=== PATIENT | female | born 1960 | race Caucasian/White ===

== ENCOUNTER 2017-01-20 03:17 | Emergency (ER) | payer OTHER ==
[2017-01-20] MEDS ORDERED: cefTRIAXone\\ROCEPHIN 2 GM VIAL ONE (03:26)
== END 2017-01-20 03:53 | disposition home or self-care (01) ==
LOC: NAV ERS 03:17
DX: L03.116 Cellulitis of left lower limb (principal); L02.416 Cutaneous abscess of left lower limb; I10 Essential (primary) hypertension; M10.9 Gout, unspecified; F31.9 Bipolar disorder, unspecified; F17.210 Nicotine dependence, cigarettes, uncomplicated; Z79.899 Other long term (current) drug therapy
CPT/HCPCS: 10060; 96372; J0696

== ENCOUNTER 2020-07-01 06:35 | Outpatient (CLI) | payer OTHER ==
--- NOTE | 2020-07-01 07:49 | RAD ---
EXAM: XR Hip Rt 2-3 View PROVIDED CLINICAL HISTORY: Pain status post injury COMPARISON: None FINDINGS: Nondisplaced fracture involving the right pubic body is demonstrated. No additional fracture is evide nt. Right hip joint space appears maintained. Degenerative changes are seen involving the right sacroiliac joint. IMPRESSION: Nondisplaced right pubic body fracture.
== END 2020-07-01 06:36 | disposition home or self-care (01) ==
LOC: NAV RAD 06:35
PROVIDERS: ATTEND Family Medicine
DX: M25.551 Pain in right hip (principal); S32.501A Unspecified fracture of right pubis, initial encounter for closed fracture

== ENCOUNTER 2020-09-13 06:14 | Observation (INO) | payer OTHER ==
[2020-09-13] MEDS ORDERED: Ketorolac Tromethamine 60 MG/2 ML VIAL ONE (06:37)
[2020-09-13] MEDS ORDERED: Morphine 2 MG/ML SYRINGE ONE (08:14)
--- NOTE | 2020-09-13 08:31 | CT ---
PRELIMINARY REPORT/[facility]/EMERGENCY AFTER HOURS PROCEDURE: EXAM: CT Pelvis Without Intravenous Contrast. CLINICAL HISTORY: Patient is a 60-year-old female with a history of right hip pain since a near fall April 2020. Severe pain with walking and movement since. 2 months later patient had a x-ray of her lower back which demonstrated a right pubic body fracture of her pelvis. Patient has been referre d to orthopedics but not seen them in eventually was told she would probably need to be referred to pain management. Patient is not had any any further x-ray CTs or MRIs. 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 Left hip was replaced in 2018 TECHNIQUE: Axial computed tomography images of the pelvis without intravenous contrast. CONTRAST: None. COMPARISON: None FINDINGS: Left hip arthroplasty hardware appears intact. A mildly comminuted and displaced right pubi c fracture extends into the pubic symphysis. Adjacent to the right pubic fracture on coronal image 72 there is a partially peripherally calcified 3.6 x 2.9 x 4.3 cm oval masslike lesion. Intact right hip joint. Mild osteoarthrosis. Right femoral head avascular necrosis. Bilateral sacral insufficiency fractures. IMPRESSION: Right pubic fracture with mild comminution and displacement extends into the pubic symphy sis. A partially calcified oval masslike lesion adjacent to the right pubic fracture most likely represents an old hematoma measuring up to 4.3 cm. Bilateral sacral insufficiency fractures. Right fe moral head avascular necrosis. Intact left hip arthroplasty hardware. ELECTRONICALLY SIGNED BY: Mynor Rivera MD Sep 13, 2020 7:27:20 AM [employer] FINAL REPORT EMERGENT AFTER HOURS NONCONTRAST CT PELVIS: HISTORY: Right hip pain since fall in April 2020. Severe pain with walking. COMPARISON: None IMPRESSION: 1. Mildly comminuted right pubic bone fracture with adjacent peripherally calcified oval masslike str ucture in the adductor musculature likely related to partially calcified hematoma measuring 4.3 cm. 2. Bilateral sacral insufficiency fractures more prominent on the left. 3. Osteonecrosis involving the superior aspect right femoral head without collapse. 4. Left total hip prosthesis. 5. Degenerative changes visualized lower lumbar spine. 6. Colonic diverticulosis. 7. Findings are in agreement with preliminary report by [facility]. Transcribed Date/Time: 09/13/2020 8:49 AM
[2020-09-13 09:49] VITALS: BMI 32.4
[2020-09-13] MEDS: HYDROcodone/Acetaminophen 10/325 mg Tablet PO PRN ×2 (10:58→16:25)
[2020-09-13] MEDS ORDERED: Sodium Chloride 0.9% 10 ML ONE (14:08)
[2020-09-13] MEDS: Morphine 4 MG/ML VIAL SLOW IVP PRN (14:28)
[2020-09-13] MEDS ORDERED: hydrOXYzine Pamoate 25 mg Capsule PO SCH ×2 (15:00→17:30)
[2020-09-13] MEDS: hydrOXYzine Pamoate 25 mg Capsule PO SCH (20:27)
[2020-09-13] MEDS: Citalopram 20 MG TAB PO SCH (20:28)
[2020-09-13] MEDS: Lisinopril 20 MG TAB PO SCH (20:28)
[2020-09-13] MEDS: Ziprasidone 20 MG CAP PO SCH (20:28)
[2020-09-13] MEDS: Doxepin HCl 25 MG CAP PO SCH (20:29)
[2020-09-14] MEDS: HYDROcodone/Acetaminophen 10/325 mg Tablet PO PRN ×2 (05:26→09:15)
[2020-09-14] MEDS ORDERED: HYDROcodone/Acetaminophen 10/325 mg Tablet ONE ×3 (09:09→21:10)
--- OUTSIDE RECORDS SUMMARY | 2020-09-14 10:31 | XMS | Patient Health Record ---
:1960 Author Organization [facility] Address [address] [place] [address] Care Team Providers Name Role Phone Chase Unavailable [phone] Chao Unavailable [phone] Enoch Unavailable [phone] Daftarian Unavailable [phone] zzRouk Unavailable [phone] Delezene Unavailable [phone] PROBLEMS Type Condition ICD9-CM [id number] Onset Condition SNOMED Code Notes Code Code Dates Status Problem Essential I10 Active 95434555 Controlled hypertension with lisinopril and amlodipine Problem Bipolar disorder, F31.76 Active 06158157 Diagn osed in full greater than remission, most 20 years ago recent episode by psychi atry. depressed Reports initial hospitalizatio n at time of diagnosis. Not suicidal. Mood has stabilized. Problem Presence of Z96.649 Active 104533200 Status pos t artificial hip, left hip unspecified replacement laterality secondary to avascular necrosis. Secondary to alcohol abuse. No desire to quit. Problem Chronic gout M1A.9XX0 Active 840353319 Off without tophus, allopuri nol unspecified for greater cause, than 6 months unspecified site per pat ient. No exacerbation in greater than 1 year Problem Chronic renal N18.3 Active 388904031 Stable. impairment, stage 3 (moderate) Problem Closed fracture S32.501A Active 727659680 Follo wed by of right pubis, orthoped ics. unspecified Recent portion of pubis, increa sed back initial encounter pain w ithout red flags. Request imaging of the lumbar spine again. Problem Avascular M87.00 Active 451024244 reactive lizzette ma necrosis in left hip Problem Avascular M87.051 Active 284163512 necrosis of hip, right Problem Alcohol abuse F10.10 Active 41539253 No desire to quit. Daily use. Problem Gastroesophageal K21.9 Active 321811491 Chron ic reflux disease, alcohol use. esophagitis No diet presence not modificatio n. specified Ranitidine effective Problem Hip pain M25.559 Active 55751363 Problem Degenerative disc M51.36 Active 23215980 disease, lumbar Problem History of total Z96.649 Active [id number] hip arthroplasty ALLERGIES No Known Allergies ENCOUNTERS from 1960 to 2020-09-14 Encounter Location Date Provider Diagnosis [address], [place] [facility] [facility] [address] IMMUNIZATIONS Vaccine Route Administration Date Status Rocephin (Ceftriaxone) 250 mg IM Intramuscular January 22, 2017 A dministered Flu Quadrivalent PF 0.5 ml IM Unknown May 26, 2020 Ad ministered Flu Quadrivalent PF 0.5 ml IM Unknown Jun 10, 2019 Ad ministered Tdap (Adacel) IM Intramuscular Sep 01, 2015 Administered SOCIAL HISTORY Tobacco Use: Social History Observation Description Date Details (start date - stop date) Former Smoker Sex Assigned At : Social History Observation Description Sex Assigned At Unknown Smoking Question Answer Notes Are you a: former smoker REASON FOR REFERRAL from 1960 to 2020-09-14 Reason CCM Referring Provider First Name [place] Referring Provider Last Name Chase Referring Provider Specialty Family Practice Referred Provider [facility] stem, Medical Records Referral Priority Routine VITAL SIGNS from 1960 to 2020-09-14 Weight 230 lbs Aug, Height 71 in Aug, BMI 32.07 kg/m2 Aug, Heart Rate 92 /min Jul, Temperature 98.7 degrees Fahrenheit Jul, Oximetry 98 % Jul, Respiratory Rate 18 /min Feb, Blood pressure systolic 123 mm Hg May, Blood pressure diastolic 88 mm Hg May, MEDICATIONS Medication SIG (Take, Route, Notes Start Date End Date Status Frequency, Duration) Ziprasidone HCl 60 MG 1 capsule Orally Twice a Active day for 90 days Amlodipine Besylate 5 MG 1 tablet Orally Once a Active day for 90 Meloxicam 15 MG 1 tablet Orally Once a Active day Doxepin HCl 75 MG 1 capsule at bedtime Active Orally Once a day for 90 days Lisinopril 40 mg 1 tablet Orally Once a Active day for 90 Celexa 40 mg 1 tablet Orally Once a Active day for 90 Tramadol HCl 50 MG 1 tablet as needed May, Active Orally every 6 hrs for 7 days HydrOXYzine Pamoate 25 MG TAKE 1 CAPSULE BY MOUTH Active NEEDED EVERY 8 HRS FOR ANXIETY Orally every 8 hrs for 25 PROCEDURES No Information RESULTS No Results REASON FOR VISIT hip pain/ref dr hayward-barndy precert req, PAIN, *Follow Up Left Hip, Meds verified by reviewing meds in EHR; pt did not bring bottles or list, *AP Pelvis, XRAY APPT, sxs, [facility] PUI, fingers tingling and numb, Triplicate Refill Request, Triplicate, CONCERNS 2nd attempt 07/15, 1st attempt 07/14, follow up left hip/ RT hip, Pain Medication, pain relief, 1st attempt 06/17, Wellness exam, RX, rx , RX REFILL, left hip/nx/n mri/y surgery 2017, 1st attemp 06/03/20, HURT LT SIDE HIP, Surgery Clearance, 2 WK FU, bp; , concerns 2nd attempt 01/06, bp high , RX , RX , RX , RX, WELLNESS , rx, RX, rx, rx, rx, DENAE HEEL HURTING , RX , RX, RX, DUPLICATE, DUPLICATE, RX, REFERRAL , lm to call back 08/14, Refill, hip hurts and lt shoulder , ERROR, 6M FU, clarification, RE: RX REFILL/ HydrOXYzine Pamoate 25 MG Capsule, REFILL , REFILL, 3 MONTH F/U, RX REFILL , RX REFILL, [employer] Wellness Exam, [employer] Wellness Exam, REFILL, RX REFILL , F/U , RX REFILL, future lab, RX REFILL , 6 WK F/U for tobacco abuse, future lab, RX REFILL , F/U chronic medical conditions, f/u , Follow up Left Hip, 3 month f/u , refill, post op left hip;dos 04/29/18, 3 month f/u, Physical Therapy Request , PT order, Left THR, Follow up Left Hip, RX , 2 mo f/u and TSH lab, 2 mo f/u and TSH lab, Mri Results Left Hip, Request Tylenol #3, LEFT HIP/YX [facility] , RX REFILL, IN PAIN , ortho consult, 3 month f\\u, RX REFILL , REFILL, omepra zole, REFILL, Update Demographics - Personal Info, QUESTION ON MEDS 1st attempt, REFILL, 2 wk f\\u, 2 week follow up HTN, alcohol use, 2 WK F/U, 2 WK F/U, f/u gout, RX, rx refill, 1st attempt, ER F/U , concerns, BP Concerns , BP concerns , 2 week f/u, f/u gout, concerns, ankle pain , mammo order, ESTABLISH; RX REFILL, Medications verified by reviewing bottles brought in by patient today, Phys, OSHA, Rest Fit, Titers MEDICAL (GENERAL) HISTORY Type Description Date Medical History Bipolar disorder. Medical History Gout Medical History Elevated liver ernzymes. Medical History Alcohol use. Medical History HTN Medical History Diverticulosis Medical History AVN left hip Medical History CRI. III Surgical History Colonoscopy: Around age 47. Normal per p atient. 06/01/16 Dr Hess. Polyp and diverticulos is. 5 year follow up. Surgical History Right shoulder X 7. Rotator cuff. First rib. Scope. Surgical History T&A Surgical History Partial hysterectomy followed by a compl ete hysterectomy. Surgical History Cholecystectomy. Surgical History Mammogram: Age 47 normal per patient. Benign. Initiated 04/07/18 not done. 519 benign. Requests every two years Surgical History Tdap: 08/2015 Surgical History Left THR 04-29-18 Surgical History Shingrix: Advised on 01/02/19 Surgical History Hepatitis C screen: 2015. Negative Surgical History Left heel surgery Surgical History Flu vaccine: Fall 2019 per patient Hospitalization History Surgery Goals Section No Information Health Concerns No Information MEDICAL EQUIPMENT No Information MENTAL STATUS No Information FUNCTIONAL STATUS No Information ASSESSMENTS Encounter Date Diagnosis Assessment Notes Treatment Notes Treatm ent Clinical Notes Aug, Hip pain (ICD-10 - Discussed care. M25.559) The patient is healing her pubic symphysis fracture. I recommend continued conservative care. I discussed that her right avascular necrosis is stable. If it became symptomatic we discussed replacement. The patient may follow-up with PCP for continued pain management. I will see her back as needed. Aug, Degenerative disc disease, lumbar (ICD-10 - M51.36) Aug, History of total hip arthroplasty (ICD-10 - Z96.649) Aug, Closed fracture of right pubis, unspecified portion of pubis, initial encounter (ICD-10 - S32.501A) Aug, Avascular necrosis of hip, right (ICD-10 - M87.051) Jul, COVID-19 (ICD-10 - Advise 10-day U07.1) quarantine. Recommend rest, fluids, try antihistamine (nichole, claritin, or zyrtec), add mucinex, tylenol for OCONNOR, fever, pain, salt water sinus washes and gargle. If worsening symproms, especially respiratory distress, go to ER. Jul, Closed fracture of Followed by X-ray of the back right pubis, orthopedics. Recent per patient unspecified portion increased back pain request. of pubis, initial without red flags. Follow-up with encounter (ICD-10 - Request imaging of orthopedics as S32.501A) the lumbar spine advised again. Jul, Upper respiratory Symptoms started we will help her tract infection, this morning. get scheduled for unspecified type COVID-19 testing (ICD-10 - J06.9) Jul, Sore throat (ICD-10 - J02.9) Jul, Other Time spent on phone with patient was 5 minutes. Jun, Hip pain (ICD-10 - M25.559) Jun, Degenerative disc disease, lumbar (ICD-10 - M51.36) Jun, History of total hip arthroplasty (ICD-10 - Z96.649) Jun, Closed fracture of right pubis, unspecified portion of pubis, initial encounter (ICD-10 - S32.501A) Jun, Other Discussed treatment options. The patient has a pubic symphysis injury with right pubic ramus fracture nondisplaced. The patient received ketorolac for pain relief. I discussed the risk of stomach ulceration. The patient received hydrocodone for short-term pain relief. Patient will weight-bear as tolerated. I will see her back in 2 months for repeat x-rays AP pelvis. Jun, Closed fracture of right pubis, unspecified portion of pubis, initial encounter (ICD-10 - S32.501A) Jun, Right hip pain (ICD-10 - M25.551) May, Alcohol abuse (ICD-10 - F10.10) May, Wellness examination (ICD-10 - Z00.00) May, Essential Controlled with No change hypertension (ICD-10 lisinopril and - I10) amlodipine May, Bipolar disorder, in Diagnosed greater No change full remission, most than 20 years ago by recent episode psychiatry. Reports depressed (ICD-10 - initial F31.76) hospitalization at time of diagnosis. Not suicidal. Mood has stabilized. May, Alcohol abuse (ICD-10 No desire to quit. No desire to quit - F10.10) Daily use. May, Gastroesophageal Chronic alcohol use. Continue H2 reflux disease, No diet dylan esophagitis presence modification. not specified (ICD-10 Ranitidine effective - K21.9) May, Chronic gout without Off allopurinol for Update me lesly shrestha toppennies, unspecified greater than 6 exacerbation cause, unspecified months per patient. site (ICD-10 - No exacerbation in M1A.9XX0) greater than 1 year May, Chronic renal Stage III. Stable. Continue to impairment, stage 3 monitor. Avoid (moderate), anti-inflammatori unspecified whether es. Consult stage 3a or 3b CKD nephrology if it (ICD-10 - N18.30) progresses to stage IV May, Acute left-sided low Seeing orthopedist Physical thera py. back pain, and chiropractor. Follow-up with unspecified whether orthopedics as sciatica present advised. (ICD-10 - M54.5) One-time refill of muscle relaxers May, Hip pain (ICD-10 - M25.559) May, Degenerative disc disease, lumbar (ICD-10 - M51.36) May, History of total hip arthroplasty (ICD-10 - Z96.649) May, Other Discussed treatment options. I informed the patient that her implants look stable and do not appear to be infected. I informed the patient she may have sustained a muscular hip strain and that she likely has degenerative disk disease with small listhesis based on radiographs. I recommend conservative care to include NSAID's, ice, heat, rest, and ROM exercises as tolerated. Prescribed Medrol Dosepak and muscle relaxant. If the patient's pain persists or worsens, we will discuss ordering a MRI. She will receive one tramadol refill. F/U 4 weeks. May, Acute left-sided low Slipped 3 days ago Trial of muscl e back pain without without a fall. Wet relaxers for 1 sciatica (ICD-10 - floor. History of week. May cause M54.5) left hip replacement sedation. in 2018. X-ray with Physical therapy no abnormality. if not improving Prosthesis in place. or with worsening No radiculopathy. May, Left leg pain (ICD-10 - M79.605) Feb, Preop examination Secondary to left Acceptable risk (ICD-10 - Z01.818) heel spur. for general Podiatry. Day anesthesia for surgery. General day surgery. anesthesia. Chronic Foot surgery. medical conditions Established with controlled. She podiatry. does have daily Chronic medical alcohol use without conditions are history of controlled. withdrawals or Reports that seizures. Reports podiatry is aware that podiatry is for daily alcohol aware and she will use. Had no let anesthesia know issues with hip also. replacement a couple years ago. I advised CBC, CMP, TSH, PT/INR, chest x-ray, EKG. Reports that podiatry will order these labs and imaging. She is cleared as long as labs and imaging are done and unremarkable. Feb, Calcaneal spur of left foot (ICD-10 - M77.32) Feb, Essential Controlled with No change hypertension (ICD-10 lisinopril and - I10) amlodipine Feb, Bipolar disorder, in Diagnosed greater No change full remission, most than 20 years ago by recent episode psychiatry. Reports depressed (ICD-10 - initial F31.76) hospitalization. Not suicidal. Mood has stabilized-father has moved out Feb, Alcohol abuse (ICD-10 No desire to quit. No desire to quit - F10.10) Daily use. Aware may affect anesthesia. Reports that podiatry is aware. No history of withdrawals or seizures Feb, Chronic renal Stable. Will need labs impairment, stage 3 prior to surgery (moderate) (ICD-10 - N18.3) Feb, Gastroesophageal Chronic alcohol use. Continue H2 reflux disease, No diet dylan esophagitis presence modification. not specified (ICD-10 Ranitidine effective - K21.9) Feb, Chronic gout without Stable with Continue tophus, unspecified allopurinol. allopurinol cause, unspecified Affected her knees. site (ICD-10 - M1A.9XX0) December, Essential Improved control No change hypertension (ICD-10 with lisinopril and - I10) recent addition of Norvasc. No side effects. December, Bipolar disorder, in Diagnosed greater Increase dose o f full remission, most than 20 years ago by Heidi. recent episode psychiatry. Reports Reevaluate in 2 depressed (ICD-10 - initial weeks. Sooner F31.76) hospitalization. with concerns Not suicidal. Recent worsening of mood. Mainly depression. Related to father being chronically ill. Request medication adjustment. Aug, Right buttock pain She is worried about Short-term chavez n (ICD-10 - M79.18) her hip. This is control. X-ray not typical for hip of the hip per pain. History of patient request. avascular necrosis Physical therapy. on the left side. Differential diagnosis of discogenic pain. Request short-term pain control. Willing to do physical therapy. Aug, Pain of left heel Exam consistent with She will use an (ICD-10 - M79.672) Achilles tendinitis. Tom compressio n wrap around her Achilles tendon. Physical therapy. _update me if not improved. Aug, Left hip pain (ICD-10 History of avascular X-ray to rayna - M25.552) necrosis with hip for stability replacement recent increased pain. Exam unremarkable. Jul, Arthralgia, About 2 weeks. Labs. Reevaluate unspecified joint Polyarthralgia and based on results (ICD-10 - M25.50) polymyalgia. No medication changes or recent illness. She is on psychotropics. Jul, Myalgia (ICD-10 - M79.10) December, Wellness examination (ICD-10 - Z00.00) December, Encounter for screening mammogram for breast cancer (ICD-10 - Z12.31) December, Bipolar disorder, in Stable for greater No change full remission, most than 20 years. recent episode Not suicidal. depressed (ICD-10 - Hospitalized during F31.76) initial diagnosis period. No medication side effects. December, Alcohol abuse (ICD-10 Desire to quit. Return when read y - F10.10) Wants to revisit to quit after vacation this month. December, Essential Controlled No change hypertension (ICD-10 - I10) December, Chronic gout without Stable with Continue tophus, unspecified allopurinol. allopurinol cause, unspecified Affected her knees. site (ICD-10 - M1A.9XX0) December, Chronic renal Stable. Monitor. impairment, stage 3 Nephrology (moderate) (ICD-10 - consult if it N18.3) progresses to stage IV December, Bronchitis (ICD-10 - Greater than one Update me with J40) week of symptoms. worsening or if not improving after one week December, Other Encouraged continued abstinence from smoking Nov, Tobacco abuse (ICD-10 Started age 18. One Encouraged - Z72.0) pack per day. continued Completed nicotine abstinence. patch and gum. Quit as of 10/29/18 Nov, Gastroesophageal Chronic alcohol use. One month of reflux disease, No diet ranitidine. GI esophagitis presence modification. consult to not specified (ICD-10 Omeprazole was consider EGD if - K21.9) effective until not improving recently. Breakthrough symptoms. Nov, Chronic renal impairment, stage 3 (moderate) (ICD-10 - N18.3) Nov, Chronic renal impairment, stage 3 (moderate) (ICD-10 - N18.3) Sep, Tobacco abuse (ICD-10 Started age 18. One Encouraged - Z72.0) pack per day. Desire tobacco to quit. Chantix cessation. caused suicidality. Continue nicotine Nicotine patch patch. Follow-up effective but has 4 weeks. Sooner not completely quit. with concerns. Down to 6 or 7 cigarettes daily Sep, Right elbow pain Exam consistent [id number] (ICD-10 - M25.521) lateral elbow brace. epicondylitis. Sep, Chronic renal impairment, stage 3 (moderate) (ICD-10 - N18.3) Aug, Bipolar disorder, in Stable for greater full remission, most than 20 years. recent episode Not suicidal. depressed (ICD-10 - Hospitalized during F31.76) initial diagnosis period. No medication side effects. Aug, Essential Controlled hypertension (ICD-10 - I10) Aug, Alcohol abuse (ICD-10 No desire to quit. - F10.10) Failed tapering off last year. Reports that she has cut down on quantity. Aug, Presence of Status post left hip artificial hip, replacement unspecified secondary to laterality (ICD-10 - avascular necrosis. Z96.649) Secondary to alcohol abuse. No desire to quit. Aug, Chronic gout without Stable with tophus, unspecified allopurinol. cause, unspecified Affected her knees. site (ICD-10 - M1A.9XX0) Aug, Tobacco abuse (ICD-10 Started age 18. One Encouraged - Z72.0) pack per day. Desire tobacco to quit. Chantix cessation. Trial caused suicidality. of nicotine Degrees to the patch patch. Follow-up with six-week 6 weeks. Sooner follow-up with concerns Jul, Presence of Gradually artificial hip, increase unspecified activities as laterality (ICD-10 - tolerated. Z96.649) Recheck at 2 years. Follow up as need Discussed plan of care with patient and they acknowledge understanding of care duration, medications, procedures, rehabilitation, and follow-up Apr, Presence of Discussed post artificial hip, operative care. unspecified Patient will laterality (ICD-10 - return to work Z96.649) following hip precautions. Reviewed x-rays taken today. Finish aspirin and increase WBAT. Continue PT. We will discuss leg length discrepancy at next visit if needed. F/U 3 months. Discussed plan of care with patient and they acknowledge understanding of care duration, medications, procedures, rehabilitation, and follow-up Mar, Patellofemoral arthritis of left knee (ICD-10 - M17.12) Mar, Avascular necrosis reactive edema in Patient wishes to (ICD-10 - M87.00) left hip schedule a hip replacement at this time. I discussed the options of a core decompression and possible autograft which she declined. I explained to the patient that the hip will last her about 15-25 years. Follow up TBS once procedure is scheduled. Discussed with patient the potential risks of surgery to include: infection, pain, bleeding, scar, decreased range of motion/function/s trength, fracture, failure of hardware/repair, need for hardware removal/revision, damage to vital structures to include: nerve/artery/vein /muscle/tendon/jayna ne/, cartilage , need for further procedures, blood clots, complications of anesthesia to include /damage to major organs, loss of life or limb, and other possible unpredictable human errors or complications. Discussed plan of care with patient and they acknowledge understanding of care duration, medications, procedures, rehabilitation, and follow-up. Mar, Bipolar disorder, in full remission, most recent episode depressed (ICD-10 - F31.76) Mar, Abnormal thyroid Yaneth of this year. Repeat thyroid function test (ICD-10 Elevated TSH with function - R94.6) normal free T4. Not symptomatic. Mar, Left hip pain (ICD-10 Diagnosed with Refill Tylenol 3. - M25.552) avascular necrosis. Follow-up with Establish with orthopedics as orthopedics. Request advised as needed Tylenol No. 3. Mar, Encounter for screening mammogram for breast cancer (ICD-10 - Z12.31) Feb, Patellofemoral arthritis of left knee (ICD-10 - M17.12) Feb, Avascular necrosis reactive edema in (ICD-10 - M87.00) left hip Feb, Other Discussed using a walker and wrote a script for the patient. LARS SILVERMANE. Discussed that long-term the patient may require total hip replacement for treating her avascular necrosis. Follow-up 6 weeks. Discussed plan of care with patient and they acknowledge understanding of care duration, medications, procedures, rehabilitation, and follow-up Jan, Left hip pain (ICD-10 - M25.552) Jan, Patellofemoral arthritis of left knee (ICD-10 - M17.12) Jan, Acute pain of left hip (ICD-10 - M25.552) Jan, Other The patient received a knee injection with good pain relief. I'll send the patient for an MRI of her left knee to evaluate for possible AVN left femoral head. Follow-up MRI results. Discussed plan of care with patient and they acknowledge understanding of care duration, medications, procedures, rehabilitation, and follow-up Jan, Left hip pain (ICD-10 - M25.552) Jan, Bipolar disorder, in full remission, most recent episode depressed (ICD-10 - F31.76) Jan, Left hip pain (ICD-10 - M25.552) Jan, Alcohol abuse (ICD-10 No desire to quit. Advised cessa tion - F10.10) Failed tapering off but she has no last year. Reports desire to quit that she has cut down on quantity. Jan, Essential Controlled Continue hypertension (ICD-10 lisinopril - I10) Jan, Hyperuricemia (ICD-10 Ankles and knees. No change. - E79.0) On allopurinol. Normal uric acid after starting. Has decreased alcohol use. No desire to quit Pain resolved Jan, Bipolar disorder, in Stable for greater No change full remission, most than 20 years. recent episode Not suicidal. depressed (ICD-10 - Hospitalized during F31.76) initial diagnosis period. No medication side effects. Jan, Left hip pain (ICD-10 Acute. I discussed Further actio n - M25.552) the differential of based on x-ray avascular necrosis result due to her chronic alcohol use. Ultram not effective for pain. I will do very limited Tylenol 3. She has a history of elevated liver enzymes. Pain control until we figure out what is going on Oct, Bipolar disorder, in full remission, most recent episode depressed (ICD-10 - F31.76) Mar, Alcohol abuse (ICD-10 Willing to quit. Continue to - F10.10) Wants to gradually taper. PRN taper off. Down to 5 lorazepam. Two beers from 15 daily. week follow up. No withdrawl sympotms. Has lorzepam. Mar, Essential Improved control. No change. Will hypertension (ICD-10 continue to - I10) monitor as she tapers off alcohol. Has improved with lisinopril. Mar, Hyperuricemia (ICD-10 Ankles and knees. No change. - E79.0) On allopurinol. Normal uric acid after starting. Has decreased alcohol use. Trying to quit. Pain resolved Feb, Alcohol abuse (ICD-10 Willing to quit. Continue to - F10.10) Wants to gradually taper. PRN taper off. Down to lorazepam. 10 beers from 15 Reports reflux daily. symptoms. PPI. No withdrawl Two week follow sympotms. up. Has lorzepam. Feb, Essential Improved control. No change. hypertension (ICD-10 - I10) Feb, Hyperuricemia (ICD-10 Ankles and knees. No change. - E79.0) On allopurinol. Normal uric acid after starting. Has decreased alcohol use. Trying to quit. Feb, Alcohol abuse (ICD-10 Willing to quit. Taper off - F10.10) Wants to taper off. alcohol. PRN No history of lorazepam. I withdrawals or advised a one seizures. week follow up. She opted for two. Sooner with concerns. Feb, Hyperuricemia (ICD-10 Consistent with Requests - E79.0) alcohol use. steroids. Bilateral ankles and now left knee Feb, Essential Remains elevated. I Increase hypertension (ICD-10 am hesitant adding lisinopril to 20 - I10) HCTZ with the mg PO BID. Goal alcohol use and risk is less than for hyponatremia. 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 Continue bactri m. unspecified site Seen in the ER. S/P Follow up with (ICD-10 - L02.91) I&D. On bactrim. worsening or if there is no continued improvement. 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 without tophus, elevated uric acid Labs. unspecified level consistent Three month laterality (ICD-10 - with gout. Daily follow up. M1A.4790) alcohol use. Update me if not improving in one weeks. December, Other BP elevated. Monitor at home. Update me if not less than 140/90 Nov, Pain in right ankle Achilles tendon. Tom wraps. Higher and joints of right Differentials and extended foot (ICD-10 - include gout(daily course of oral M25.571) alcohol use) and steroids. Follow Achilles tendonitis. up two weeks. Sooner with Uric acid level was concerns. elevated. Responded but did not resolve with steroids. Colchicine was not effective. Nov, Other Requests refills. Oct, Pain in right ankle Achilles tendon. Tom wraps and and joints of right Differentials uric acid level. foot (ICD-10 - include gout(daily M25.571) alcohol use) and Achilles tendonitis. Oct, Bipolar disorder, in Mood stable. Moodstable. full remission, most Requests refills. recent episode depressed (ICD-10 - F31.76) Oct, Other Requests refills. Jul, Abnormal CBC (ICD-10 - R79.89) May, Abnormal CBC (ICD-10 - R79.89) Apr, Abnormal CBC (ICD-10 - R79.89) Apr, Bipolar disorder, in Stable for greater Labs. full remission, most than 20 years. Medication recent episode Not suicidal. refills. depressed (ICD-10 - Hospitalized during Three month F31.76) initial diagnosis follow up. Sooner period. with concerns. No medication side effects. Apr, Colon cancer screening (ICD-10 - Z12.11) Apr, Encounter for screening mammogram for breast cancer (ICD-10 - Z12.31) Apr, Diarrhea, unspecified Suspect that it is GI advice. type (ICD-10 - R19.7) related to cholecystectomy status. Aug, Encounter for other Reviewed x-ray: administrative no active examinations (ICD-10 pulmonary - Z02.89) process, no evidence of active TB Will clear for proposed duties and resp wear pending titers Aug, Positive PPD (ICD-10 - R76.11) Aug, Physical exam, pre-employment (ICD-10 - Z02.1) PLAN OF TREATMENT Treatment Notes Assessment Notes Clinical Notes Other secondary chronic gout of ankle Trial of allopurinol.L abs.Three without tophus, unspecified month follow up.Update me if not laterality improving in one weeks. Gastroesophageal reflux disease, Continue H2 dylan esophagitis presence not specified Bipolar disorder, in full remission, Labs.Medication refills .Three most recent episode depressed month follow up. Sooner with concerns. Chronic gout without tophus, Continue allopurinol unspecified cause, unspecified site Arthralgia, unspecified joint Labs. Reevaluate based on resu lts Chronic renal impairment, stage 3 Monitor. Nephrology consul t if it (moderate) progresses to stage IV Closed fracture of right pubis, X-ray of the back per patien t unspecified portion of pubis, initial request. Follow-up wi th encounter orthopedics as advised Chronic renal impairment, stage 3 Continue to monitor. Avoi d (moderate), unspecified whether stage anti-inflammatories. Consult 3a or 3b CKD nephrology if it progresses to stage IV Presence of artificial hip, Gradually increase activities as unspecified laterality tolerated. Recheck at 2 years. Follow up as needDiscussed plan of care with patient and they acknowledge understanding of care duration, medications, procedures, rehabilitation, and follow-up Right buttock pain Short-term pain control. X-ray of the hip per patient request. Physical therapy. Tobacco abuse Encouraged tobacco cessation. Continue nicotine patch. Follow-up 4 weeks. Sooner with concerns. Preop examination Acceptable risk for general anesthesia for day surgery. Foot surgery. Established with podiatry. Chronic medical conditions are controlled. Reports that podiatry is aware for daily alcohol use. Had no issues with hip replacement a couple years ago. I advised CBC, CMP, TSH, PT/INR, chest x-ray, EKG. Reports that podiatry will order these labs and imaging. She is cleared as long as labs and imaging are done and unremarkable. Gastroesophageal reflux disease, Continue H2 dylan esophagitis presence not specified Essential hypertension No change Chronic gout without tophus, Update me with exacerbation unspecified cause, unspecified site Left hip pain Further action based on x-ray result Alcohol abuse Continue to taper. PRN lorazepam. Two week follow up. Chronic renal impairment, stage 3 Will need labs prior to lozada rgery (moderate) Pain in right ankle and joints of Tom wraps and uric acid le keely. right foot Tobacco abuse Encouraged tobacco cessation. Trial of nicotine patch. Follow-up 6 weeks. Sooner with concerns Diarrhea, unspecified type GI advice. Alcohol abuse Continue to taper. PRN lorazepam. Reports reflux symptoms. PPI. Two week follow up. Bipolar disorder, in full remission, No change most recent episode depressed Alcohol abuse Advised cessation but she has no desire to quit Bipolar disorder, in full remission, No change most recent episode depressed Presence of artificial hip, Discussed post operative care. unspecified laterality Patient will return to work following hip precautions. Reviewed x-rays taken today. Finish aspirin and increase WBAT. Continue PT. We will discuss leg length discrepancy at next visit if needed. F/U 3 months.Discussed plan of care with patient and they acknowledge understanding of care duration, medications, procedures, rehabilitation, and follow-up Alcohol abuse No desire to quit Acute left-sided low back pain Trial of muscle relaxers for 1 without sciatica week. May cause sedation. Physical therapy if not improving or with worsening Tobacco abuse Encouraged continued abstinence. Alcohol abuse No desire to quit Hip pain Discussed care. The patient is healing her pubic symphysis fracture. I recommend continued conservative care. I discussed that her right avascular necrosis is stable. If it became symptomatic we discussed replacement. The patient may follow-up with PCP for continued pain management. I will see her back as needed. Abnormal thyroid function test Repeat thyroid function Hyperuricemia No change. Left hip pain X-ray to check for stability Essential hypertension No change Alcohol abuse Return when ready to quit Bipolar disorder, in full remission, No change most recent episode depressed Abscess cutaneous, unspecified site Continue bactrim. Follow up with worsening or if there is no continued improvement. COVID-19 Advise 10-day quarantine. Recommend rest, fluids, try antihistamine (nichole, claritin, or zyrtec), add mucinex, tylenol for OCONNOR, fever, pain, salt water sinus washes and gargle. If worsening symproms, especially respiratory distress, go to ER. Encounter for other administrative Reviewed x-ray: no active examinations pulmonary process, no evidence of active TBWill clear for proposed duties and resp wear pending titers Essential hypertension No change. Will continue to monitor as she tapers off alcohol. Has improved with lisinopril. Right elbow pain [id number] elbow brace. Essential hypertension Increase lisinopril to 20 mg PO BID. Goal is less than 140/90 Hyperuricemia No change. Hyperuricemia No change. Bipolar disorder, in full remission, No change most recent episode depressed Essential hypertension Continue lisinopril Essential hypertension No change Hyperuricemia Requests steroids. Bipolar disorder, in full remission, Increase dose of Geodon . most recent episode depressed Reevaluate in 2 weeks. Sooner with concerns Left hip pain Refill Tylenol 3. Follow-up with orthopedics as advised Upper respiratory tract infection, we will help her get sche duled unspecified type for COVID-19 testing Avascular necrosis Patient wishes to schedule a hip replacement at this time. I discussed the options of a core decompression and possible autograft which she declined. I explained to the patient that the hip will last her about 15-25 years. Follow up TBS once procedure is scheduled.Discussed with patient the potential risks of surgery to include: infection, pain, bleeding, scar, decreased range of motion/function/strength, fracture, failure of hardware/repair, need for hardware removal/revision, damage to vital structures to include: nerve/artery/vein/muscle/tendon/b one/, cartilage , need for further procedures, blood clots, complications of anesthesia to include /damage to major organs, loss of life or limb, and other possible unpredictable human errors or complications.Discussed plan of care with patient and they acknowledge understanding of care duration, medications, procedures, rehabilitation, and follow-up. Bipolar disorder, in full remission, Moodstable. most recent episode depressed Essential hypertension No change. Pain of left heel She will use an Tom compression wrap around her Achilles tendon. Physical therapy. _update me if not improved. Gastroesophageal reflux disease, One month of ranitidine. GI esophagitis presence not specified consult to consider EGD i f not improving Acute left-sided low back pain, Physical therapy. Follow-up with unspecified whether sciatica present orthopedics as advised. One-time refill of muscle relaxers Chronic gout without tophus, Continue allopurinol unspecified cause, unspecified site Bronchitis Update me with worsening or if not improving after one week Pain in right ankle and joints of Tom wraps. Higher and exte nded right foot course of oral steroids. Follow up two weeks. Sooner with concerns. Essential hypertension No change Alcohol abuse Taper off alcohol. PRN lorazepam. I advised a one week follow up. She opted for two. Sooner with concerns. Treatment Notes Test Name Order Date LUMBAR SPINE 2 OR 3 VIEWS 2020-09-14 DEXA Hip and Spine 2020-09-14 HIP 2-3 VIEWS RIGHT ([id number]) 2020-09-14 COMPREHENSIVE METABOLIC 2020-09-14 HIP 2 VIEW ROUTINE LT 2020-09-14 HIP 2 VIEW ROUTINE RT 2020-09-14 HIP 2 VIEW ROUTINE LT 2020-09-14 HIP 2-3 VIEWS LEFT ([id number]) 2020-09-14 Referrals Referral Date Details Screening colonoscopy. Thank you. |Also has chronic intermittent diarrhea. Suspect that it is related to cholecystectomy. Please advise. Thank you., . [facility] 2018-02-11 2018-02-11, Xray done. Alcoh ol abuse but no xray evidence of avascular necrosis. I wanted to consul t ortho prior to discussing MRI. Thank you, Abraham Reddy, [address], [place], [address], pt request - evaluate and tr eat hip and leg pain, [place] History of avascular necrosi s left hip with replacement. Recent left Achilles pain. Recent right buttocks pain. I ordered x-rays of both hips. Please evaluate and t reat.|In [place] please, PT-[facility] evaluate and treat for possi ble bone spur., . [facility] 2020-06-17 2020-06-17, Please evaluate and treat, PT-[facility] 2020-08-23 2020-08-23, Acute. No fall. Please evaluate and treat, PT-[facility] 2020-09-15 2020-09-15, evaluate and celestine at, pt has done PT several times w/o lasting results, Bubba chilel, [address] [place], [address], [facility] Next Appt Details Provider Name:Bubba Feng, 2020-09-15 09:00:00 AM, [address], [place], [address], Insurance Providers Payer Name Payer Address Payer Insured Patient Coverage Cover age Phone Name Relationship to Start Date End Date Insured [facility] [phone] [facility] [address] [facility] [facility] [address] [employer] [address] [phone] [place] [address] [place] [address] [place] [address] [employer] [address] [phone] [place] self [address] [place] [address] [facility] [address] [facility]"
[2020-09-14] MEDS: Lisinopril 20 MG TAB PO SCH ×2 (10:49→21:04)
[2020-09-14] MEDS: Ziprasidone 20 MG CAP PO SCH ×2 (10:50→21:02)
[2020-09-14] MEDS: Amlodipine 5 MG TAB PO SCH (10:50)
[2020-09-14] MEDS ORDERED: Morphine 2 MG/ML SYRINGE ONE (11:57)
[2020-09-14] MEDS: hydrOXYzine Pamoate 25 mg Capsule PO SCH ×3 (11:59→21:13)
[2020-09-14] MEDS: Morphine 4 MG/ML VIAL SLOW IVP PRN (12:03)
[2020-09-14] MEDS ORDERED: HYDROcodone/Acetaminophen 5/325 mg Tablet PO PRN (12:50)
[2020-09-14] MEDS: HYDROcodone/Acetaminophen 10/325 mg Tablet PO SCH ×2 (16:21→21:12)
[2020-09-14] MEDS: Doxepin HCl 25 MG CAP PO SCH (21:01)
[2020-09-14] MEDS: Citalopram 20 MG TAB PO SCH (21:01)
--- NOTE | 2020-09-14 21:05 | PRG ---
DATE OF SERVICE: 09/14/2020 SUBJECTIVE: Ms. James is resting in bed, sleeping, but arousable. She apparently needed morphine this morning. Apparently, there was an issue with the medication dispensing unit and pharmacist had to commence all the medicines were delayed by at least a few hours. I advised her that the plan is to discontinue her morphine IV, switch her to Keiser t.i.d. routine and Keiser 5 mg t.i.d. p.r.n. for breakthrough pain and anticipate discharging her home tomorrow. OBJECTIVE: VITAL SIGNS: She is afebrile. Heart rate 81, respirations 20, oxygen saturation 97% on room air, blood pressure 142/84. CARDIOVASCULAR SYSTEM: S1-S2 plus. RESPIRATORY SYSTEM: Normal vesicular breath sounds. ABDOMEN: Soft and nontender. Bowel sounds heard in all quadrants. EXTREMITIES: Without cyanosis, clubbing. IMPRESSION: 1. Right superior pubic rami fracture. 2. Avascular necrosis of right hip. 3. Hypertension. 4. Bipolar disorder. 5. Depression. 6. Possible osteoarthritis. PLAN: 1. Continue current medications. 2. Discontinue morphine and simplify pain regimen. 3. Heart healthy diet. 4. Activity as tolerated. 5. Anticipate discharge her to home tomorrow and outpatient followup with PCP and orthopedic surgeon. Job ID: [id number]
[2020-09-15] MEDS ORDERED: HYDROcodone/Acetaminophen 10/325 mg Tablet ONE (08:45)
[2020-09-15] MEDS: HYDROcodone/Acetaminophen 10/325 mg Tablet PO SCH (08:47)
[2020-09-15] MEDS: Ziprasidone 20 MG CAP PO SCH (08:49)
[2020-09-15] MEDS: Lisinopril 20 MG TAB PO SCH (08:49)
[2020-09-15] MEDS: Amlodipine 5 MG TAB PO SCH (08:50)
[2020-09-15] MEDS: hydrOXYzine Pamoate 25 mg Capsule PO SCH (08:52)
[2020-09-15] MEDS ORDERED: HYDROcodone/Acetaminophen 5/325 mg Tablet ONE (12:23)
[2020-09-15 12:57] VITALS: BP 113/63; TEMP 97.1
--- NOTE | 2020-09-15 22:32 | DIS ---
DATE OF ADMISSION: 09/13/2020 DATE OF DISCHARGE: 09/15/2020 PRINCIPAL DIAGNOSIS: Intractable right hip and groin pain. SECONDARY DIAGNOSES: 1. Avascular necrosis of right hip. 2. Right superior pubic rami fracture. 3. Hypertension. 4. Bipolar disorder. 5. Depression. 6. Possible osteoarthritis. COMPLICATIONS: None. ADVERSE REACTIONS: None. PROCEDURES: None. CONSULTATIONS: None. HOSPITAL COURSE: The patient was admitted due to intractable pain. She apparently had suffered a right superior pubic rami fracture in April and Orthopedics deemed her to be inoperable. She was treated conservatively and was slowly improving. She apparently ran out of pain medicines and has been working, but then started noticing intractable pain. She was evaluated in the ER and was felt to need pain management, so was admitted to the hospital. She will have outpatient followup with Orthopedic Surgery. She was started on [place] 10 mg q.4h p.r.n. and morphine 2 mg IV q.4h p.r.n. She has been doing well and she was switched over to [place] 10 mg t.i.d. routine and [place] 5 mg t.i.d. p.r.n., and her morphine was discontinued. Her activity was also increased. She has been moving around better and she was deemed stable for discharge to home. She will be on [place] 10/325 t.i.d. p.r.n. She is aware of the risks of narcotic use and not to drive or operate any machinery. Imaging also shows the possibility of avascular necrosis of the right hip and she has been scheduled an appointment with her orthopedic surgeon, Dr. Reddy. I told her that I have given her enough medications for 10 days and she needs to get all further pain medicines from either her orthopedic surgeon or her PCP. She has been doing well from the bipolar disorder standpoint. DISCHARGE MEDICATIONS: Same as admission except the new one will be [place] 10/325 one tablet t.i.d. p.r.n. The other medicines she went home on are: 1. Norvasc 5 mg daily. 2. Celexa 40 mg daily. 3. Doxepin 75 mg at bedtime. 4. Hydroxyzine 25 mg t.i.d. 5. Lisinopril 40 mg b.i.d. 6. Protonix 40 mg daily. 7. Geodon 60 mg b.i.d. DISCHARGE INSTRUCTIONS: Heart-healthy diet. Active, orthopedic precautions. She is to call us with any questions or concerns. Prescription was called into [facility]. PHYSICAL EXAMINATION: VITAL SIGNS: On the day of discharge, she is afebrile. Heart rate is 81, respirations 18, oxygen saturation 92% on room air, blood pressure 113/63. CARDIOVASCULAR SYSTEM: S1, S2 plus. RESPIRATORY SYSTEM: Normal vesicular breath sounds. ABDOMEN: Soft, nontender. Bowel sounds heard in all quadrants. EXTREMITIES: Without cyanosis, clubbing. CENTRAL NERVOUS SYSTEM: Generalized weakness, otherwise nonfocal. TIME SPENT: Total time spent on this discharge including coordination of care was 35 minutes. Job ID: [id number]
--- NOTE | 2020-09-16 06:12 | SS ---
DATE OF ADMISSION: 09/13/2020 DATE OF DISCHARGE: 09/15/2020 CHIEF COMPLAINT: Intractable pain. BRIEF HISTORY: This is a 60-year-old female, who apparently fractured her right side upper pelvis in April when she slipped in her kitchen and jerked her body pretty hard. She states that she did not fall. She apparently was evaluated by Orthopedic Surgery and recommended conservative management. It apparently has not healed. She apparently was cleared by Orthopedic Surgery and transferred her care to Dr. Stone, but she apparently has not had any pain medicines for about 2 weeks. She is working and she apparently felt significant pain and so presented to the emergency room. She works as a lab assistant here. Repeat CT shows a comminuted and displaced right pubic fracture extending into the pubic symphysis with an adjacent calcified hematoma and right femoral head avascular necrosis and bilateral sacral insufficiency fractures. She is admitted for pain control. She has been started on Stitzer 10/325 q.4 routine and morphine for breakthrough pain. She also has history of hypertension and bipolar disease and we will get her back on her home medications. She apparently is not taking her allopurinol anymore. PAST MEDICAL HISTORY: 1. Hypertension. 2. Diverticulosis. 3. History of gout. 4. Bipolar disorder. 5. Avascular necrosis to bilateral hip. PAST SURGICAL HISTORY: 1. Colonoscopy with polypectomy. 2. Multiple right shoulder surgery. 3. Tonsillectomy. 4. Adenoidectomy. 5. Partial hysterectomy followed by a complete hysterectomy. 6. Cholecystectomy. 7. History of left total hip replacement for avascular necrosis. FAMILY HISTORY: Positive for hypertension and heart disease in her father as well as her mother. PSYCHOSOCIAL HISTORY: Positive for smoking and daily alcohol use. Apparently, she also has history of methamphetamine abuse. MEDICATIONS: Currently, she is taking; 1. Norvasc 5 mg daily. 2. Celexa 40 mg daily. 3. Doxepin 75 mg at bedtime. 4. Vistaril 25 mg t.i.d. 5. Zestril 40 mg b.i.d. 6. Protonix 40 mg daily. 7. Geodon 60 mg b.i.d. ALLERGIES: NO KNOWN DRUG ALLERGIES. REVIEW OF SYSTEMS: GENERAL: Denies any change in weight or fever or change in appetite. RESPIRATORY: Denies any chronic cough, expectoration, or pleuritic-type chest pain. CARDIOVASCULAR: Denies any chest pain, shortness of breath, palpitations, PND, orthopnea, or pedal edema. GASTROINTESTINAL: Denies any nausea, vomiting, diarrhea, constipation, hematemesis, melena, or hematochezia. GENITOURINARY: Denies any frequency, urgency, dysuria, or hematuria. CENTRAL NERVOUS SYSTEM: Denies any focal numbness or weakness. She is noticing right hip and right groin pain. SKIN: Denies any rash. EXTREMITIES: Occasional joint pains. HEENT: Denies any changes with speech, vision, hearing, or swallowing. PHYSICAL EXAMINATION: GENERAL: A pleasant 60-year-old female, resting in bed and denies any concerns. She is alert, awake, and responsive. She is not in any distress. No family at bedside. VITAL SIGNS: She is afebrile. Heart rate 88, respirations 20, oxygen saturation 98% on room air, blood pressure 150/70. HEENT: Normocephalic and atraumatic. Pupils equally reacting to light and accommodation. Extraocular muscles intact. NECK: No JVD, thyromegaly, cervical adenopathy, or throat exudates. No carotid bruits. CARDIOVASCULAR: S1 and S2 plus. Rate and rhythm regular. RESPIRATORY: Normal vesicular breath sounds heard in all lung fong. ABDOMEN: Soft, nontender. Bowel sounds heard in all quadrants. EXTREMITIES: Without cyanosis or clubbing. CENTRAL NERVOUS SYSTEM: Awake and responsive. Cranial nerves 2 through 12 intact. Grossly nonfocal. LABORATORY VALUES: CT report, which I have already mentioned. IMPRESSION: 1. Intractable pain secondary to right superior pubic rami fracture extending into the symphysis. 2. Avascular necrosis of right hip. 3. Hypertension. 4. Depression and bipolar disorder. 5. History of gout. 6. Diverticulosis. PLAN: 1. Continue home medications. 2. Add Stitzer 10/325 q.4 routine and morphine 2 mg IV q.6 p.r.n. 3. Low-sodium diet. 4. Activity as tolerated. 5. Schedule appointment with Orthopedic Surgery for evaluation of the right hip avascular necrosis. 6. DVT prophylaxis. The patient is active enough that she is low risk. 7. Anticipate discharging her home tomorrow if her pain is under control on oral Stitzer. Discussed with the patient in detail. All questions were answered. Job ID: [id number]
== END 2020-09-15 14:26 | disposition home or self-care (01) ==
LOC: NAV ERS 06:14 → NAV ACUTE 08:50
PROVIDERS: ADMIT Internal Medicine; ATTEND Internal Medicine
DX: M87.851 Other osteonecrosis, right femur (principal); S32.591A Other specified fracture of right pubis, initial encounter for closed fracture; I12.9 Hypertensive chronic kidney disease with stage 1 through stage 4 chronic kidney disease, or unspecified chronic kidney disease; N18.30 Chronic kidney disease, stage 3 unspecified; F31.9 Bipolar disorder, unspecified; F17.200 Nicotine dependence, unspecified, uncomplicated; K57.30 Diverticulosis of large intestine without perforation or abscess without bleeding; Z79.899 Other long term (current) drug therapy; Z96.642 Presence of left artificial hip joint; W01.0XXA Fall on same level from slipping, tripping and stumbling without subsequent striking against object, initial encounter; Y92.000 Kitchen of unspecified non-institutional (private) residence as the place of occurrence of the external cause
CPT/HCPCS: 72192; 96372; 96374; 96376; G0378; J1885; J2270; Q0177

== ENCOUNTER 2020-11-24 11:38 | Outpatient (CLI) | payer OTHER | END 2020-11-24 11:39 | disposition home or self-care (01) | LOC: NAV RAD 11:38 | PROVIDERS: ATTEND Family Medicine | DX: M25.551 Pain in right hip (principal); Z96.641 Presence of right artificial hip joint ==

== ENCOUNTER 2020-12-09 19:57 | Inpatient (IN) | payer OTHER ==
[2020-12-09] MEDS ORDERED: hydrOXYzine Pamoate 25 mg Capsule PO PRN (21:14)
[2020-12-09] MEDS ORDERED: HYDROcodone/Acetaminophen 5/325 mg Tablet PO PRN (21:16)
[2020-12-09] MEDS ORDERED: traMADol HCl 50 MG TAB PO PRN (21:18)
[2020-12-09] MEDS: Ziprasidone 20 MG CAP PO SCH (22:19)
[2020-12-09] MEDS: Doxepin HCl 25 MG CAP PO SCH (22:19)
[2020-12-09] MEDS: Citalopram 20 MG TAB PO SCH (22:20)
[2020-12-09] MEDS: tiZANidine HCl 4 MG TAB PO PRN (22:20)
[2020-12-09] MEDS: HYDROcodone/Acetaminophen 5/325 mg Tablet PO PRN (22:21)
[2020-12-09] MEDS: hydrOXYzine Pamoate 25 mg Capsule PO SCH (22:21)
[2020-12-10] MEDS: traMADol HCl 50 MG TAB PO PRN (01:32)
[2020-12-10] MEDS: HYDROcodone/Acetaminophen 5/325 mg Tablet PO PRN ×4 (05:18→20:17)
[2020-12-10] MEDS: Amlodipine 5 MG TAB PO SCH (09:26)
[2020-12-10] MEDS: hydrOXYzine Pamoate 25 mg Capsule PO SCH ×3 (09:26→20:15)
[2020-12-10] MEDS: Ziprasidone 20 MG CAP PO SCH ×2 (09:26→20:30)
[2020-12-10] MEDS: Aspirin 81 mg Enteric Coated Tablet PO SCH (09:27)
[2020-12-10] MEDS: tiZANidine HCl 4 MG TAB PO PRN ×2 (09:37→20:15)
[2020-12-10] MEDS: Citalopram 20 MG TAB PO SCH (20:14)
[2020-12-10] MEDS: Doxepin HCl 25 MG CAP PO SCH (20:15)
[2020-12-11] MEDS: HYDROcodone/Acetaminophen 5/325 mg Tablet PO PRN ×4 (00:58→23:51)
[2020-12-11 08:15] LABS: #Basophils 0.1 thou/uL (0.0-0.2); #Eosinphils 0.6 thou/uL (0.0-0.7); #Lymphocytes 2.6 thou/uL (1.20-3.40); #Monocytes 0.7 thou/uL (0.11-0.59); #Neutrophils 3.5 thou/uL (1.40-6.50); %Basophils 1.2 % (0.0-1.0); %Eosinophils 8.4 % (0.0-10.0); %Lymphocytes 34.5 % (21.0-51.0); %Monocytes 9.7 % (0.0-10.0); %Neutrophils 46.2 % (42.0-75.0); ALT (SGPT) 50 U/L (8-55); AST (SGOT) 34 U/L (5-34); Albumin 3.5 g/dL (3.5-5.0); Alkaline Phosphatase 362 U/L (40-110); Anion Gap 13 mmol/L (10-20); Anisocytosis SLIGHT = 6-15 cells (100X) (0-5/hpf); BUN (Urea Nitrogen) 12 mg/dL (9.8-20.1); Bilirubin, Total 0.2 mg/dL (0.2-1.2); Calc. Creatinine Clearance 111 mL/min (70-130); Calcium 9.4 mg/dL (7.8-10.44); Carbon Dioxide 29 mmol/L (22-29); Chloride 103 mmol/L (98-107); Globulin 2.6 g/dL (2.4-3.5); Glucose 102 mg/dL (70-105); Hemoglobin 9.4 g/dL (12.0-16.0); Hypochromia SLIGHT = 6-15 cells (100X) (0-5/hpf); MDiff Complete? YES; Mean Corpuscular HGB CONC 29.9 g/dL (32.0-36.0); Mean Corpuscular Hemoglobin 28.9 pg (27.0-31.0); Mean Corpuscular Volume 96.5 fL (78.0-98.0); Mean Platelet Volume 7.6 fL (7.4-10.4); Platelet Count 365 thou/uL (130-400); Platelet Morphology Comment Appears Adequate; Polychromasia SLIGHT = 2-3 cells (100X) (0-2/hpf); Potassium 4.6 mmol/L (3.5-5.1); Protein, Total 6.1 g/dL (6.0-8.3); RBC Distribution Width 13.4 % (11.5-14.5); Red Blood Cell (RBC) Count 3.25 mill/uL (4.20-5.40); Sodium 140 mmol/L (136-145); White Blood Cell (WBC) Count 7.6 thou/uL (4.8-10.8)
[2020-12-11] MEDS: Ziprasidone 20 MG CAP PO SCH ×2 (08:26→21:07)
[2020-12-11] MEDS: tiZANidine HCl 4 MG TAB PO PRN ×4 (08:26→21:07)
[2020-12-11] MEDS: hydrOXYzine Pamoate 25 mg Capsule PO SCH ×3 (08:27→21:06)
[2020-12-11] MEDS: Amlodipine 5 MG TAB PO SCH (08:28)
[2020-12-11] MEDS: Aspirin 81 mg Enteric Coated Tablet PO SCH (08:29)
[2020-12-11] MEDS: Doxepin HCl 25 MG CAP PO SCH (21:07)
[2020-12-11] MEDS: Citalopram 20 MG TAB PO SCH (21:07)
[2020-12-12] MEDS: HYDROcodone/Acetaminophen 5/325 mg Tablet PO PRN ×4 (08:04→20:43)
[2020-12-12] MEDS: Aspirin 81 mg Enteric Coated Tablet PO SCH (08:04)
[2020-12-12] MEDS: Amlodipine 5 MG TAB PO SCH (08:04)
[2020-12-12] MEDS: hydrOXYzine Pamoate 25 mg Capsule PO SCH ×3 (08:06→20:43)
[2020-12-12] MEDS: Ziprasidone 20 MG CAP PO SCH ×2 (08:06→20:45)
[2020-12-12] MEDS ORDERED: Senokot S 8.6-50 MG TAB PO PRN (19:24)
[2020-12-12] MEDS ORDERED: Calcium Carbonate 500 MG ChewTAB PO PRN (19:24)
[2020-12-12] MEDS ORDERED: Loperamide HCl 2 MG CAP PO PRN (19:24)
[2020-12-12] MEDS ORDERED: Artificial Tear Sol 15 ML BOT EA EYE PRN (19:24)
[2020-12-12] MEDS ORDERED: Ondansetron ODT 4 MG TAB PO PRN (19:24)
[2020-12-12] MEDS ORDERED: Cepastat Lozenges 1 LOZ PO PRN (19:24)
[2020-12-12] MEDS ORDERED: Eucerin (Mineral Oil/Petrolatum,White) 30 gm Jar TOP PRN (19:24)
[2020-12-12] MEDS ORDERED: Bisacodyl 5 MG TAB PO PRN (19:24)
[2020-12-12] MEDS ORDERED: Diphenoxylate HCl/Atropine Tablet PO PRN (19:24)
[2020-12-12] MEDS ORDERED: Sodium Chloride 0.65% Nasal 44 ML BOT EA NARE PRN (19:24)
[2020-12-12] MEDS: Doxepin HCl 25 MG CAP PO SCH (20:43)
[2020-12-12] MEDS: Citalopram 20 MG TAB PO SCH (20:45)
[2020-12-13] MEDS: HYDROcodone/Acetaminophen 5/325 mg Tablet PO PRN ×6 (00:44→21:11)
[2020-12-13] MEDS: hydrOXYzine Pamoate 25 mg Capsule PO SCH ×3 (09:01→21:13)
[2020-12-13] MEDS: Ziprasidone 20 MG CAP PO SCH ×2 (09:01→21:12)
[2020-12-13] MEDS: Aspirin 81 mg Enteric Coated Tablet PO SCH (09:01)
[2020-12-13] MEDS: tiZANidine HCl 4 MG TAB PO PRN (15:38)
[2020-12-13] MEDS: Citalopram 20 MG TAB PO SCH (21:12)
[2020-12-13] MEDS: Doxepin HCl 25 MG CAP PO SCH (21:12)
[2020-12-14] MEDS: HYDROcodone/Acetaminophen 5/325 mg Tablet PO PRN ×4 (05:50→19:54)
[2020-12-14] MEDS: Ziprasidone 20 MG CAP PO SCH ×2 (09:09→19:59)
[2020-12-14] MEDS: Aspirin 81 mg Enteric Coated Tablet PO SCH (09:10)
[2020-12-14] MEDS: hydrOXYzine Pamoate 25 mg Capsule PO SCH ×3 (09:10→19:59)
[2020-12-14] MEDS: tiZANidine HCl 4 MG TAB PO PRN (14:04)
[2020-12-14] MEDS: Doxepin HCl 25 MG CAP PO SCH (19:58)
[2020-12-14] MEDS: Citalopram 20 MG TAB PO SCH (19:59)
[2020-12-15] MEDS: HYDROcodone/Acetaminophen 5/325 mg Tablet PO PRN ×5 (04:20→20:07)
[2020-12-15] MEDS: Ziprasidone 20 MG CAP PO SCH ×2 (08:25→20:09)
[2020-12-15] MEDS: Aspirin 81 mg Enteric Coated Tablet PO SCH (08:25)
[2020-12-15] MEDS: hydrOXYzine Pamoate 25 mg Capsule PO SCH ×3 (08:25→20:07)
[2020-12-15] MEDS: tiZANidine HCl 4 MG TAB PO PRN ×4 (09:54→22:03)
[2020-12-15] MEDS: Doxepin HCl 25 MG CAP PO SCH (20:08)
[2020-12-15] MEDS: Citalopram 20 MG TAB PO SCH (20:09)
[2020-12-15] MEDS: traMADol HCl 50 MG TAB PO PRN (22:02)
[2020-12-16] MEDS: HYDROcodone/Acetaminophen 10/325 mg Tablet PO PRN ×3 (00:01→20:32)
[2020-12-16] MEDS: tiZANidine HCl 4 MG TAB PO PRN ×4 (03:32→20:37)
[2020-12-16] MEDS: traMADol HCl 50 MG TAB PO PRN ×2 (03:32→12:09)
[2020-12-16] MEDS: Ziprasidone 20 MG CAP PO SCH ×2 (08:49→20:34)
[2020-12-16] MEDS: hydrOXYzine Pamoate 25 mg Capsule PO SCH ×3 (08:51→20:34)
[2020-12-16] MEDS: Aspirin 81 mg Enteric Coated Tablet PO SCH (08:52)
[2020-12-16] MEDS: HYDROcodone/Acetaminophen 5/325 mg Tablet PO PRN (14:17)
[2020-12-16] MEDS ORDERED: HYDROcodone/Acetaminophen 5/325 mg Tablet PO PRN (18:36)
[2020-12-16] MEDS: Doxepin HCl 25 MG CAP PO SCH (20:33)
[2020-12-16] MEDS: Citalopram 20 MG TAB PO SCH (20:34)
[2020-12-17] MEDS: HYDROcodone/Acetaminophen 10/325 mg Tablet PO PRN ×4 (02:24→20:16)
[2020-12-17] MEDS: tiZANidine HCl 4 MG TAB PO PRN ×4 (06:27→23:09)
[2020-12-17] MEDS: hydrOXYzine Pamoate 25 mg Capsule PO SCH ×3 (08:32→20:15)
[2020-12-17] MEDS: Aspirin 81 mg Enteric Coated Tablet PO SCH (08:32)
[2020-12-17] MEDS: Ziprasidone 20 MG CAP PO SCH ×2 (08:33→20:15)
[2020-12-17] MEDS: traMADol HCl 50 MG TAB PO PRN ×2 (12:16→18:23)
[2020-12-17] MEDS: Doxepin HCl 25 MG CAP PO SCH (20:14)
[2020-12-17] MEDS: diphenhydrAMINE 25 MG CAP PO PRN (20:15)
[2020-12-17] MEDS: Citalopram 20 MG TAB PO SCH (20:17)
[2020-12-18 02:04] VITALS: BMI 31.1
[2020-12-18] MEDS: HYDROcodone/Acetaminophen 10/325 mg Tablet PO PRN ×4 (02:12→20:43)
[2020-12-18] MEDS: tiZANidine HCl 4 MG TAB PO PRN ×3 (05:05→18:03)
[2020-12-18 06:02] LABS: Anion Gap 13 mmol/L (10-20); BUN (Urea Nitrogen) 13 mg/dL (9.8-20.1); Calc. Creatinine Clearance 109 mL/min (70-130); Calcium 9.1 mg/dL (7.8-10.44); Carbon Dioxide 28 mmol/L (22-29); Chloride 102 mmol/L (98-107); Glucose 106 mg/dL (70-105); Sodium 139 mmol/L (136-145)
[2020-12-18 06:25] LABS: #Basophils 0.1 thou/uL (0.0-0.2); #Eosinphils 0.5 thou/uL (0.0-0.7); #Lymphocytes 2.5 thou/uL (1.20-3.40); #Monocytes 0.6 thou/uL (0.11-0.59); #Neutrophils 3.6 thou/uL (1.40-6.50); %Eosinophils 6.5 % (0.0-10.0); %Lymphocytes 34.8 % (21.0-51.0); %Neutrophils 49.7 % (42.0-75.0); Hemoglobin 9.8 g/dL (12.0-16.0); Mean Corpuscular HGB CONC 29.4 g/dL (32.0-36.0); Mean Corpuscular Hemoglobin 28.3 pg (27.0-31.0); Mean Corpuscular Volume 96.2 fL (78.0-98.0); Mean Platelet Volume 7.4 fL (7.4-10.4); Platelet Count 296 thou/uL (130-400); RBC Distribution Width 13.3 % (11.5-14.5); Red Blood Cell (RBC) Count 3.46 mill/uL (4.20-5.40); White Blood Cell (WBC) Count 7.3 thou/uL (4.8-10.8)
[2020-12-18] MEDS: hydrOXYzine Pamoate 25 mg Capsule PO SCH ×3 (09:05→20:43)
[2020-12-18] MEDS: Aspirin 81 mg Enteric Coated Tablet PO SCH (09:05)
[2020-12-18] MEDS: Ziprasidone 20 MG CAP PO SCH ×2 (09:05→20:42)
[2020-12-18] MEDS: traMADol HCl 50 MG TAB PO PRN ×2 (12:11→18:03)
[2020-12-18] MEDS: Doxepin HCl 25 MG CAP PO SCH (20:42)
[2020-12-18] MEDS: Citalopram 20 MG TAB PO SCH (20:43)
[2020-12-18] MEDS: diphenhydrAMINE 25 MG CAP PO PRN (20:43)
[2020-12-19] MEDS: tiZANidine HCl 4 MG TAB PO PRN ×4 (00:06→18:29)
[2020-12-19] MEDS: traMADol HCl 50 MG TAB PO PRN ×3 (00:07→19:21)
[2020-12-19] MEDS: HYDROcodone/Acetaminophen 10/325 mg Tablet PO PRN ×4 (03:12→20:37)
[2020-12-19] MEDS: Aspirin 81 mg Enteric Coated Tablet PO SCH (09:15)
[2020-12-19] MEDS: hydrOXYzine Pamoate 25 mg Capsule PO SCH ×3 (09:15→20:39)
[2020-12-19] MEDS: Ziprasidone 20 MG CAP PO SCH ×2 (09:15→20:38)
[2020-12-19] MEDS: Doxepin HCl 25 MG CAP PO SCH (20:39)
[2020-12-19] MEDS: Citalopram 20 MG TAB PO SCH (20:40)
[2020-12-19] MEDS: diphenhydrAMINE 25 MG CAP PO PRN (22:54)
[2020-12-20] MEDS: tiZANidine HCl 4 MG TAB PO PRN ×4 (00:11→20:53)
[2020-12-20] MEDS: HYDROcodone/Acetaminophen 10/325 mg Tablet PO PRN ×3 (04:23→23:12)
[2020-12-20] MEDS: traMADol HCl 50 MG TAB PO PRN ×3 (07:47→20:54)
[2020-12-20] MEDS: Aspirin 81 mg Enteric Coated Tablet PO SCH (08:10)
[2020-12-20] MEDS: Ziprasidone 20 MG CAP PO SCH ×2 (08:10→20:54)
[2020-12-20] MEDS: hydrOXYzine Pamoate 25 mg Capsule PO SCH ×3 (08:10→20:54)
[2020-12-20] MEDS ORDERED: HYDROcodone/Acetaminophen 10/325 mg Tablet ONE (11:01)
[2020-12-20] MEDS: Doxepin HCl 25 MG CAP PO SCH (20:53)
[2020-12-20] MEDS: diphenhydrAMINE 25 MG CAP PO PRN (20:54)
[2020-12-20] MEDS: Citalopram 20 MG TAB PO SCH (20:54)
[2020-12-21] MEDS: traMADol HCl 50 MG TAB PO PRN ×3 (03:20→20:38)
[2020-12-21] MEDS: tiZANidine HCl 4 MG TAB PO PRN ×3 (03:20→20:40)
[2020-12-21] MEDS: HYDROcodone/Acetaminophen 10/325 mg Tablet PO PRN ×4 (05:27→23:16)
[2020-12-21] MEDS: Aspirin 81 mg Enteric Coated Tablet PO SCH (09:11)
[2020-12-21] MEDS: Ziprasidone 20 MG CAP PO SCH ×2 (09:12→20:39)
[2020-12-21] MEDS: hydrOXYzine Pamoate 25 mg Capsule PO SCH ×3 (09:12→20:40)
[2020-12-21] MEDS: Citalopram 20 MG TAB PO SCH (20:38)
[2020-12-21] MEDS: diphenhydrAMINE 25 MG CAP PO PRN (20:39)
[2020-12-21] MEDS: Doxepin HCl 25 MG CAP PO SCH (20:39)
[2020-12-22] MEDS: traMADol HCl 50 MG TAB PO PRN ×4 (03:15→21:13)
[2020-12-22] MEDS: tiZANidine HCl 4 MG TAB PO PRN ×4 (03:16→21:12)
[2020-12-22] MEDS: HYDROcodone/Acetaminophen 10/325 mg Tablet PO PRN ×4 (05:14→23:41)
[2020-12-22] MEDS: Aspirin 81 mg Enteric Coated Tablet PO SCH (08:35)
[2020-12-22] MEDS: Ziprasidone 20 MG CAP PO SCH ×2 (08:35→21:11)
[2020-12-22] MEDS: hydrOXYzine Pamoate 25 mg Capsule PO SCH ×3 (08:35→21:11)
[2020-12-22] MEDS: Doxepin HCl 25 MG CAP PO SCH (21:11)
[2020-12-22] MEDS: Citalopram 20 MG TAB PO SCH (21:11)
[2020-12-22] MEDS: diphenhydrAMINE 25 MG CAP PO PRN (23:41)
[2020-12-23] MEDS: tiZANidine HCl 4 MG TAB PO PRN ×2 (03:22→10:13)
[2020-12-23] MEDS: traMADol HCl 50 MG TAB PO PRN ×2 (03:23→10:13)
[2020-12-23] MEDS: HYDROcodone/Acetaminophen 10/325 mg Tablet PO PRN (05:51)
[2020-12-23] MEDS: Aspirin 81 mg Enteric Coated Tablet PO SCH (08:22)
[2020-12-23] MEDS: Ziprasidone 20 MG CAP PO SCH (08:22)
[2020-12-23] MEDS: hydrOXYzine Pamoate 25 mg Capsule PO SCH (08:22)
[2020-12-23 09:08] VITALS: BP 130/71; TEMP 98.2
== END 2020-12-23 11:50 | disposition home health service (06) | DRG 560 ==
LOC: NAV ACUTE 19:57
PROVIDERS: ADMIT Family Medicine; ATTEND Family Medicine
DX: Z47.1 Aftercare following joint replacement surgery (principal); D62 Acute posthemorrhagic anemia; Z96.641 Presence of right artificial hip joint; I12.9 Hypertensive chronic kidney disease with stage 1 through stage 4 chronic kidney disease, or unspecified chronic kidney disease; G89.29 Other chronic pain; F31.9 Bipolar disorder, unspecified; Z96.643 Presence of artificial hip joint, bilateral; M10.9 Gout, unspecified; Z87.891 Personal history of nicotine dependence; Z90.49 Acquired absence of other specified parts of digestive tract; Z90.710 Acquired absence of both cervix and uterus; S32.491D Other specified fracture of right acetabulum, subsequent encounter for fracture with routine healing; W19.XXXD Unspecified fall, subsequent encounter
CPT/HCPCS: 80048; 80053; 85025; Q0163; Q0177

== ENCOUNTER 2021-05-23 20:59 | Observation (INO) | payer OTHER ==
[2021-05-23 21:28] LABS: #Basophils 0.1 thou/uL (0.0-0.2); #Eosinphils 0.1 thou/uL (0.0-0.7); #Lymphocytes 1.9 thou/uL (1.20-3.40); #Monocytes 1.2 thou/uL (0.11-0.59); #Neutrophils 13.7 thou/uL (1.40-6.50); %Basophils 0.4 % (0.0-1.0); %Eosinophils 0.3 % (0.0-10.0); %Monocytes 7.2 % (0.0-10.0); %Neutrophils 81.1 % (42.0-75.0); Hemoglobin 13.1 g/dL (12.0-16.0); Mean Corpuscular HGB CONC 31.2 g/dL (32.0-36.0); Mean Corpuscular Hemoglobin 29.3 pg (27.0-31.0); Mean Corpuscular Volume 93.9 fL (78.0-98.0); Mean Platelet Volume 7.6 fL (7.4-10.4); Platelet Count 312 thou/uL (130-400); RBC Distribution Width 14.2 % (11.5-14.5); Red Blood Cell (RBC) Count 4.46 mill/uL (4.20-5.40); White Blood Cell (WBC) Count 16.9 thou/uL (4.8-10.8)
[2021-05-23 21:46] LABS: ALT (SGPT) 28 U/L (8-55); AST (SGOT) 17 U/L (5-34); Albumin 4.6 g/dL (3.5-5.0); Alkaline Phosphatase 151 U/L (40-110); Anion Gap 16 mmol/L (10-20); BUN (Urea Nitrogen) 12 mg/dL (9.8-20.1); Bilirubin, Total 0.6 mg/dL (0.2-1.2); Calc. Creatinine Clearance 0 mL/min (70-130); Calcium 10.1 mg/dL (7.8-10.44); Carbon Dioxide 24 mmol/L (22-29); Chloride 98 mmol/L (98-107); Globulin 3.3 g/dL (2.4-3.5); Glucose 103 mg/dL (70-105); Potassium 4.3 mmol/L (3.5-5.1); Protein, Total 7.9 g/dL (6.0-8.3); Sodium 134 mmol/L (136-145)
[2021-05-23] MEDS ORDERED: Sodium Chloride 0.9% 100 ML ONE (21:57)
[2021-05-23] MEDS ORDERED: Piperacillin/Tazobactam 3.375 GM VIAL ONE (21:57)
[2021-05-23] MEDS ORDERED: Sodium Chloride 0.9% 250 ML 500 ML ONE (22:08)
[2021-05-23 23:06] LABS: SARS-CoV-2 NAA Rapid Test Not Detected (NotDetected)
[2021-05-23 23:37] VITALS: BMI 33.6
[2021-05-24] MEDS ORDERED: hydrOXYzine Pamoate 25 mg Capsule PO PRN (00:28)
[2021-05-24] MEDS ORDERED: Ondansetron ODT 4 MG TAB SL PRN (00:30)
[2021-05-24] MEDS ORDERED: Ondansetron PF 4 MG/2 ML Vial IVP PRN (00:30)
[2021-05-24] MEDS ORDERED: Doxepin HCl 25 MG CAP PO SCH ×2 (00:30→21:00)
[2021-05-24] MEDS: Acetaminophen 325 MG TAB PO PRN ×2 (00:42→05:05)
[2021-05-24] MEDS: Sodium Chloride 0.9% 1,000 ML IV SCH ×2 (00:43→07:09)
[2021-05-24] MEDS: Piperacillin/Tazobactam 3.375 GM in Sodium Chloride 0.9% 100 ML IVPB SCH ×3 (02:10→17:34)
[2021-05-24] MEDS: traMADol HCl 50 MG TAB PO PRN ×3 (07:08→22:37)
[2021-05-24 07:10] LABS: Hemoglobin 12.3 g/dL (12.0-16.0); Mean Corpuscular Hemoglobin 29.4 pg (27.0-31.0); Mean Corpuscular Volume 94.8 fL (78.0-98.0); Mean Platelet Volume 7.9 fL (7.4-10.4); Platelet Count 299 thou/uL (130-400); RBC Distribution Width 14.3 % (11.5-14.5); Red Blood Cell (RBC) Count 4.16 mill/uL (4.20-5.40); White Blood Cell (WBC) Count 17.7 thou/uL (4.8-10.8)
[2021-05-24 07:11] LABS: #Basophils 0.1 thou/uL (0.0-0.2); #Eosinphils 0.1 thou/uL (0.0-0.7); #Lymphocytes 1.9 thou/uL (1.20-3.40); #Monocytes 1.5 thou/uL (0.11-0.59); #Neutrophils 14.2 thou/uL (1.40-6.50); %Basophils 0.4 % (0.0-1.0); %Eosinophils 0.6 % (0.0-10.0); %Lymphocytes 10.8 % (21.0-51.0); %Monocytes 8.3 % (0.0-10.0)
[2021-05-24 07:35] LABS: ALT (SGPT) 27 U/L (8-55); AST (SGOT) 19 U/L (5-34); Alkaline Phosphatase 143 U/L (40-110); Anion Gap 12 mmol/L (10-20); BUN (Urea Nitrogen) 16 mg/dL (9.8-20.1); Bilirubin, Total 0.4 mg/dL (0.2-1.2); Calc. Creatinine Clearance 95 mL/min (70-130); Calcium 9.1 mg/dL (7.8-10.44); Carbon Dioxide 26 mmol/L (22-29); Chloride 105 mmol/L (98-107); Glucose 124 mg/dL (70-105); Potassium 4.1 mmol/L (3.5-5.1); Sodium 139 mmol/L (136-145)
[2021-05-24] MEDS ORDERED: Lisinopril 20 MG TAB PO SCH (09:00)
[2021-05-24] MEDS ORDERED: Amlodipine 5 MG TAB PO SCH ×2 (09:00→09:30)
[2021-05-24] MEDS: Furosemide 20 MG TAB PO SCH (09:07)
[2021-05-24] MEDS: Ziprasidone 20 MG CAP PO SCH ×2 (09:08→21:09)
[2021-05-24] MEDS: Vancomycin HCl 1 GM in Sodium Chloride 0.9% 250 ML 250 ML IVPB SCH ×2 (10:11→21:12)
[2021-05-24] MEDS: Amlodipine 5 MG TAB PO SCH (10:13)
[2021-05-24] MEDS ORDERED: Citalopram 20 MG TAB PO SCH (21:00)
[2021-05-25] MEDS: Piperacillin/Tazobactam 3.375 GM in Sodium Chloride 0.9% 100 ML IVPB SCH ×2 (01:41→10:37)
[2021-05-25] MEDS: traMADol HCl 50 MG TAB PO PRN ×2 (05:41→10:38)
[2021-05-25 06:36] LABS: #Basophils 0.1 thou/uL (0.0-0.2); #Eosinphils 0.2 thou/uL (0.0-0.7); #Neutrophils 14.4 thou/uL (1.40-6.50); %Basophils 0.4 % (0.0-1.0); %Lymphocytes 11.4 % (21.0-51.0); %Monocytes 5.6 % (0.0-10.0); %Neutrophils 81.6 % (42.0-75.0); Hemoglobin 12.5 g/dL (12.0-16.0); Mean Corpuscular HGB CONC 31.4 g/dL (32.0-36.0); Mean Corpuscular Hemoglobin 29.5 pg (27.0-31.0); Mean Corpuscular Volume 93.9 fL (78.0-98.0); Platelet Count 317 thou/uL (130-400); RBC Distribution Width 14.4 % (11.5-14.5); Red Blood Cell (RBC) Count 4.26 mill/uL (4.20-5.40); White Blood Cell (WBC) Count 17.6 thou/uL (4.8-10.8)
[2021-05-25] MEDS: Amlodipine 5 MG TAB PO SCH (08:27)
[2021-05-25] MEDS: Vancomycin HCl 1 GM in Sodium Chloride 0.9% 250 ML 250 ML IVPB SCH (08:27)
[2021-05-25] MEDS: Ziprasidone 20 MG CAP PO SCH (08:27)
[2021-05-25] MEDS: Furosemide 20 MG TAB PO SCH (08:27)
[2021-05-25] MEDS ORDERED: Meloxicam 7.5 MG TAB PO SCH (10:45)
[2021-05-25 12:05] VITALS: BP 128/72; TEMP 97.6
[2021-05-25] MEDS ORDERED: Piperacillin/Tazobactam 3.375 GM in Sodium Chloride 0.9% 100 ML IVPB SCH ×2 (18:00)
== END 2021-05-25 14:57 | disposition short-term general hospital (02) ==
LOC: NAV ERS 20:59 → NAV ACUTE 23:30
PROVIDERS: ADMIT Internal Medicine; ATTEND Internal Medicine
DX: K13.0 Diseases of lips (principal); L03.211 Cellulitis of face; D72.829 Elevated white blood cell count, unspecified; I10 Essential (primary) hypertension; M10.9 Gout, unspecified; M16.0 Bilateral primary osteoarthritis of hip; M87.051 Idiopathic aseptic necrosis of right femur; M87.052 Idiopathic aseptic necrosis of left femur; Z87.891 Personal history of nicotine dependence; Z79.899 Other long term (current) drug therapy; Z20.822 Contact with and (suspected) exposure to COVID-19
CPT/HCPCS: 36415; 70450; 80053; 83605; 85025; 86140; 87040; 87070; 87077; 87186; 87205; 96365; 96367; G0378; J2543; J3370; J3490; J7050; Q0177; U0002